=== PATIENT | male | born 1970 | race Caucasian/White ===

== ENCOUNTER 2022-12-12 10:31 | Inpatient (IN) ==
[2022-12-12] MEDS ORDERED: SODIUM CHLORIDE 0.9% 1000ML 1,000 ML IV ONE (11:11)
--- NOTE | 2022-12-12 11:13 | Emergency Department Note ---
Impression & Plan DVT (deep venous thrombosis) [facility] ED Provider Note HPI: The patient is a 52-year-old gentleman with history of clotting disorder, he is currently prescribed Coumadin, presents the emergency department with a chief complaint of increasing pain in his right lower extremity below the knee for the past 7 days. Patient states over the past 2 days he has also had some pain in his lower abdomen. Patient states he has not been taking his warfarin as prescribed over about the past week because he ran out of his prescription. Patient states that he went to an outside hospital last evening in [place], [place], and he had a CT angiography performed of his chest that was negative. He did not have any ultrasound imaging done as they did not have an screen room operator in-house. Patient states he also did not have any imaging of his abdomen done. On arrival here to the ED the patient is moderately hypertensive at 162/100, he is saturating well on room air, he is otherwise in no acute distress on my initial assessment. ROS: - Per HPI Differential Diagnosis: DVT, mesenteric ischemia, small bowel obstruction, diverticulitis flare, acute appendicitis, acute colitis, amongst other potential pathologies. *Outpatient medications and allergy history reviewed. *Pertinent external medical records reviewed. PE: General: Alert HEENT: Normocephalic, trachea midline Eyes: Extraocular eye movement is intact, no scleral erythema Pulmonary: Clear to auscultation bilaterally, no wheezing Cardio: Regular rate and rhythm GI: Abdomen is soft to palpation : No suprapubic tenderness MSK: No evidence of trauma or malformation of the extremities, no edema Skin: No evidence of rash Neuro: Alert, no focal deficits Psychiatric: Cooperative site monitor: (As interpreted by myself): - An order was placed for continuous cardiac monitoring - Patient was noted to be in sinus rhythm with a rate of 75 EKG: (As interpreted by myself): Rate: 66 Rhythm: Normal sinus rhythm Intervals: Within normal limits ST changes: No ST elevation Time: 1049 Interventions provided in ED: -IV heparin drip and bolus Medical Decision Making: Shortly after the patient arrived IV was established and lab work obtained, patient was maintained on monitoring analyst. Given the patient's complaint of right lower extremity pain ultrasound imaging was obtained that does show evidence of acute DVT. Lab work shows no leukocytosis, hemoglobin is normal at 14.3, platelet count is slightly reduced at 119, INR is noted to be subtherapeutic at 1.4, CMP does not show any critical findings. Lactic acid is normal. CT imaging of the abdomen pelvis was obtained that shows evidence of extensive clot burden below the IVC filter including the IVC and iliac veins as well as femoral veins. There is also mention of nonocclusive thrombus of the inferior mesenteric vein. Patient was initiated on heparin bolus and drip, I did discuss the patient's presentation with on-call vascular surgery, Dr. Flannery, who was in agreement that there is no indication for acute surgery at this time for nonocclusive mesenteric vein thrombus, recommends heparinization until the patient's INR is therapeutic. I did discuss this with the patient and his at the bedside, they are in agreement for admission, case was then discussed with the on-call hospitalist, Dr. Emmanuel, who is in agreement for admission. Patient did take his dose of warfarin earlier today, will defer further warfarin dosing to the inpatient team. Patient was placed for admission in stable condition. Consultants: -Vascular surgery, Dr. Flannery -Hospitalist, Dr. Emmanuel Disposition discussion held by myself with: Patient and at bedside Diagnosis: 1. Acute DVT, right lower extremity 2. IVC thrombus 3. Inferior mesenteric vein thrombus 4. Bilateral iliac and femoral vein thrombus 5. History of Antithrombin III deficiency 6. 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 1986 Family history of antithrombin III deficiency History of fracture of tibia Presence of inferior vena cava filter Placed [place] in 2011 Social History Smoking Status: Never smoker Preferred Language: Albanian Feels Safe at Home: Yes Allergies Allergies Allergy/AdvReac Type Severity Reaction Status Date / Time No Known Allergies Allergy Unverified 12/12/22 14:37 Home Meds Home Medications Medication Instructions Recorded Confirmed sildenafil 100 mg tablet 100 mg PO DAILY PRN 1 hour prior 12/12/22 12/12/22 to sexual activity warfarin 2 mg tablet (Jantoven) See Rx Instructions .Route .COMPLEX 12/12/22 12/12/22 warfarin 5 mg tablet (Jantoven) See Rx Instructions .Route .COMPLEX 07/26/23 07/26/23 Results & Data (ED) Vital Signs Vital Signs - 24 hr 12/12/22 10:34 12/12/22 11:59 12/12/22 12:05 Temperature 36.6 C Temperature Source Temporal Artery Scan Pulse Rate 87 65 Pulse Rate [Apical] 67 Respiratory Rate 16 18 Respiratory Effort / Characteristics Non-Labored Respiratory Depth Normal Blood Pressure 162/100 H Blood Pressure [Left Arm] 140/102 H Blood Pressure Mean 120 Blood Pressure Mean [Left Arm] 114 Pulse Oximetry 100 98 Oxygen Delivery Method Room Air Sepsis New/Unexplained Change in Mental Status No Sepsis Action Taken by Nursing No Action Required 12/12/22 12:50 12/12/22 13:24 12/12/22 13:49 Temperature Temperature Source Pulse Rate Pulse Rate [Apical] 64 69 70 Respiratory Rate 18 18 18 Respiratory Effort / Characteristics Non-Labored Respiratory Depth Normal Blood Pressure Blood Pressure [Left Arm] 150/103 H 149/97 H 151/97 H Blood Pressure Mean Blood Pressure Mean [Left Arm] 118 114 115 Pulse Oximetry 98 99 98 Oxygen Delivery Method Room Air Room Air Room Air Sepsis New/Unexplained Change in Mental Status Sepsis Action Taken by Nursing 12/12/22 14:00 12/12/22 14:37 Temperature Temperature Source Pulse Rate Pulse Rate [Apical] 73 71 Respiratory Rate 18 18 Respiratory Effort / Characteristics Non-Labored Respiratory Depth Normal Blood Pressure Blood Pressure [Left Arm] 155/102 H 132/92 Blood Pressure Mean Blood Pressure Mean [Left Arm] 119 105 Pulse Oximetry 96 99 Oxygen Delivery Method Room Air Room Air Sepsis New/Unexplained Change in Mental Status Sepsis Action Taken by Nursing Laboratory Data 12/12/22 10:52 12/12/22 10:52 Lab Results 12/12/22 12/12/22 12/12/22 Range/Units 10:52 10:52 10:52 WBC 9.25 (4.8-10.8) K/ul RBC 4.67 L (4.70-6.10) M/uL Hgb 14.3 (14.0-18.0) g/dl Hct 42.8 (42.0-52.0) % MCV 91.6 (80.0-100.0) fL MCH 30.6 (25.0-34.0) pg MCHC 33.4 (32.0-36.0) g/dL RDW Std Deviation 46.2 (36.4-46.3) fL RDW Coeff of [place] 13.8 (11.5-14.5) % Plt Count 119 L (130-400) K/uL MPV 10.7 (9.4-12.4) fL Immature Gran % (Auto) 0.3 % Neut % (Auto) 76.1 % Lymph % (Auto) 15.1 % [place] % (Auto) 7.8 % Eos % (Auto) 0.5 % Baso % (Auto) 0.2 % Neut # (Auto) 7.03 H (1.40-6.50) K/uL Lymph # (Auto) 1.40 (1.2-3.4) K/uL [place] # (Auto) 0.72 H (0.11-0.59) K/uL Eos # (Auto) 0.05 (0-0.50) K/uL Baso # (Auto) 0.02 (0-0.2) K/uL Immature Gran # (Auto) 0.03 (0.01-0.20) K/uL PT 15.1 H (9.0-12.0) Seconds INR 1.4 H (0.9-1.1) APTT 26.8 (21.0-31.0) Seconds PTT Ratio 1.0 Sodium 140 (136-145) mmol/L Potassium 4.2 (3.5-5.1) mmol/L Chloride 105 (98-107) mmol/L Carbon Dioxide 28 (21-32) mmol/L Anion Gap 7 (3-11) BUN 19 (6-23) mg/dl Creatinine 1.12 (0.6-1.4) mg/dl Est Cr Clr Drug Dosing 81.9 ml/min Est GFR ( Amer) 86.5 ml/min Est GFR (Non-Af Amer) 74.6 ml/min BUN/Creatinine Ratio 17.0 (10-20) Glucose 111 H (70-99(Fasting)) mg/dl Lactate (0.4-2.0) mmol/L Calcium 9.6 (8.6-10.3) mg/dl Total Bilirubin 0.8 (0.2-1.0) mg/dl AST 19 (13-39) U/L ALT 19 (7-52) U/L Alkaline Phosphatase 61 (34-104) U/L Troponin I High Sens 2.6 (0-20) pg/ml Total Protein 7.5 (6.0-8.3) gm/dl Albumin 4.8 (3.4-5.0) gm/dl Globulin 2.7 (2.5-4.0) gm/dl Albumin/Globulin Ratio 1.8 (0.9-2) Lipase 60 (11-82) U/L Urine Color Urine Appearance (Clear) Urine pH (4.5-7.5) Ur Specific [place] (1.000-1.030) Urine Protein (Negative) Urine Glucose (UA) (Negative) Urine Ketones (Negative) Urine Blood (Negative) Urine Nitrite (Negative) Urine Bilirubin (Negative) Urine Urobilinogen (Negative) Ur Leukocyte Esterase (Negative) Urine WBC (Auto) (0-5) /hpf Urine RBC (Auto) (0-4) /hpf U Hyaline Cast (Auto) (0-5) /lpf U Epithel Cells (Auto) (0-5) /lpf Urine Bacteria (Auto) (Negative) SARS-CoV-2, RNA, NAAT (NEGATIVE) 12/12/22 12/12/22 12/12/22 Range/Units 12:43 13:37 13:45 WBC (4.8-10.8) K/ul RBC (4.70-6.10) M/uL Hgb (14.0-18.0) g/dl Hct (42.0-52.0) % MCV (80.0-100.0) fL MCH (25.0-34.0) pg MCHC (32.0-36.0) g/dL RDW Std Deviation (36.4-46.3) fL RDW Coeff of [place] (11.5-14.5) % Plt Count (130-400) K/uL MPV (9.4-12.4) fL Immature Gran % (Auto) % Neut % (Auto) % Lymph % (Auto) % [place] % (Auto) % Eos % (Auto) % Baso % (Auto) % Neut # (Auto) (1.40-6.50) K/uL Lymph # (Auto) (1.2-3.4) K/uL [place] # (Auto) (0.11-0.59) K/uL Eos # (Auto) (0-0.50) K/uL Baso # (Auto) (0-0.2) K/uL Immature Gran # (Auto) (0.01-0.20) K/uL PT (9.0-12.0) Seconds INR (0.9-1.1) APTT (21.0-31.0) Seconds PTT Ratio Sodium (136-145) mmol/L Potassium (3.5-5.1) mmol/L Chloride (98-107) mmol/L Carbon Dioxide (21-32) mmol/L Anion Gap (3-11) BUN (6-23) mg/dl Creatinine (0.6-1.4) mg/dl Est Cr Clr Drug Dosing ml/min Est GFR ( Amer) ml/min Est GFR (Non-Af Amer) ml/min BUN/Creatinine Ratio (10-20) Glucose (70-99(Fasting)) mg/dl Lactate 0.9 (0.4-2.0) mmol/L Calcium (8.6-10.3) mg/dl Total Bilirubin (0.2-1.0) mg/dl AST (13-39) U/L ALT (7-52) U/L Alkaline Phosphatase (34-104) U/L Troponin I High Sens (0-20) pg/ml Total Protein (6.0-8.3) gm/dl Albumin (3.4-5.0) gm/dl Globulin (2.5-4.0) gm/dl Albumin/Globulin Ratio (0.9-2) Lipase (11-82) U/L Urine Color Yellow Urine Appearance Clear (Clear) Urine pH 6.0 (4.5-7.5) Ur Specific [place] 1.041 H (1.000-1.030) Urine Protein Trace H (Negative) Urine Glucose (UA) Negative (Negative) Urine Ketones Trace H (Negative) Urine Blood Negative (Negative) Urine Nitrite Negative (Negative) Urine Bilirubin Negative (Negative) Urine Urobilinogen Negative (Negative) Ur Leukocyte Esterase Negative (Negative) Urine WBC (Auto) 1-5 (0-5) /hpf Urine RBC (Auto) 0-4 (0-4) /hpf U Hyaline Cast (Auto) 5-10 H (0-5) /lpf U Epithel Cells (Auto) 5-10 H (0-5) /lpf Urine Bacteria (Auto) Negative (Negative) SARS-CoV-2, RNA, NAAT NEGATIVE (NEGATIVE) Administered Medications Heparin Sodium/Dextrose (Heparin Sodium/Dextrose) 25,000 units in 500 mls @ 27 mls/hr IV .[id number] [facility]; Protocol Stop: 01/11/23 13:44 Last Admin: 12/12/22 13:40 Dose: 1,350 units/hr, 27 mls/hr Documented By: HEATH Co-signed By: JUWAN Discontinued Medications Heparin Sodium (Porcine) (Heparin Sod (Porcine) 1000 Unit/Ml) 6,000 units IV NOW ONE Stop: 12/12/22 13:42 Last Admin: 12/12/22 13:39 Dose: 5,000 units Documented By: HEATH Co-signed By: JUWAN Heparin Sodium/Dextrose (Heparin Iv Adult Wt-Based Standard With Bolus Protocol) 1 each IV NOW [facility]; Protocol Stop: 12/12/22 13:27 Last Admin: 12/12/22 13:51 Dose: 1 each Documented By: HEATH Sodium Chloride (Nss 1000ml) 1,000 mls @ 999 mls/hr IV .[id number] ONE Stop: 12/12/22 12:11 Last Infusion: 12/12/22 12:28 Dose: 0 mls/hr Documented By: Admin: 12/12/22 11:29 Dose: 999 mls/hr Documented By: HEATH Ioversol (Optiray 320 100ml) 94 ml IV ONCE ONE Stop: 12/12/22 12:33 Last Admin: 12/12/22 12:33 Dose: 94 ml Documented By: TRACY Imaging Data Radiologist's Impression: Abdomen/Pelvis CT 12/12/22 11:[address] WITH IV CONTRAST CT DOSE: 1326.08 mGy.cm HISTORY: Lower abd pain TECHNIQUE: Multiaxial CT images of the abdomen and pelvis were performed following the use of intravenous contrast. A dose lowering technique was utilized adhering to the principles of ALARA. COMPARISON STUDY: None. FINDINGS: Small patchy densities within the bilateral lower lobes favor scarring or atelectasis. No pneumoperitoneum. No pneumatosis. No acute fractures identified. Tiny fat-containing inguinal hernia. Multiple superficial varicosities seen within the lower anterior abdominal wall. No hepatic or splenic masses. The pancreas, adrenal glands, and kidneys are unremarkable. No hydronephrosis. The main portal vein is patent. Small amount nonocclusive thrombus suggested at the portosplenic confluence which extends into the majority of the inferior mesenteric vein. An IVC filter is noted. There is thrombus within the IVC filter and extending distally into the IVC. This likely accounts for the mild fat stranding surrounding the IVC. There is also extensive thrombus involving the majority of the iliac and femoral veins. Hyperdensity within the gallbladder lumen suggestive of vicarious excretion of contrast. There is also contrast within the bladder. This is likely due to a prior CT examination. Moderate bladder wall thickening with adjacent fat stranding. There is also mild fat stranding surrounding the mildly enlarged prostate gland as well as the seminal vesicles. This could be due to the abnormal venous drainage within the pelvis from the extensive venous thrombus or a cystitis/prostatitis. Hypoplastic left external iliac vein suggesting chronic thrombus. No bowel wall thickening or obstruction. Colonic diverticulosis. No evidence for acute diverticulitis. Normal appendix. IMPRESSION: 1. Thrombus identified within the patient's IVC filter. There is also extensive thrombus within the IVC distal to the IVC filter and within the majority of the iliac and femoral veins. The thrombus is age indeterminate but favors an acute on chronic process. There are definite areas of chronic thrombus given the extensive superficial varicosities within the lower abdominal wall and diminutive left external iliac vein. 2. Age-indeterminate thrombus within the inferior mesenteric vein as well as nonocclusive thrombus at the portosplenic confluence. 3. Moderate bladder wall thickening with adjacent fat stranding. There is also mild fat stranding surrounding the mildly enlarged prostate gland as well as the seminal vesicles. This could be due to the abnormal venous drainage within the pelvis from the extensive venous thrombus or a cystitis/prostatitis. 4. No bowel wall thickening or obstruction. ACT 112: Negative or not required by law. Electronically signed by: Blake Nettles M.D. 12/12/2022 12:54 PM Venous Doppler Study 12/12/22 11:11 US venous doppler LE RT HISTORY: 52 years-old Male pain, eval for dvt acute pain and swelling of the right lower extremity COMPARISON: 03/04/2008 TECHNIQUE: Multiple real-time sonographic images of the right lower extremity deep venous structures were obtained assessing grayscale appearance, color and spectral flow. FINDINGS: 2 cm segment of occlusive thrombus is noted within a branch of the mid superficial femoral vein. Additional occlusive thrombus is noted within the popliteal, posterior tibial and peroneal veins. IMPRESSION: Likely acute deep venous thrombosis. ACT 112: Negative or not required by law. The above report was generated using voice recognition software. It may contain grammatical, syntax or spelling errors. Electronically signed by: David Morales M.D. 12/12/2022 12:06 PM Discharge Plan Visit Data Chief Complaint: Abdominal Pain Stated Complaint: ABDOMINAL PAIN, RT [facility] ED Provider: Ford Martinez Discharge Problem: DVT (deep venous thrombosis) Forms Stand Alone Forms: [facility] Prescriptions Prescriptions: No Action sildenafil 100 mg tablet 100 mg PO DAILY PRN (Reason: 1 hour prior to sexual activity) warfarin [Jantoven] 2 mg Tablet See Rx Instructions .ROUTE .COMPLEX Rx Instructions: Take 2mg with 5mg tablet to equal 7mg by mouth once daily warfarin [Jantoven] 5 mg tablet See Rx Instructions .ROUTE .COMPLEX Rx Instructions: Take 5mg with 2mg tablet to equal 7mg by mouth once daily Referrals Referrals: Sidney Sheth [Primary Care Provider] -
[2022-12-12 11:17] LABS: Basophils # (auto) 0.02 K/uL (0-0.2); Basophils % (auto) 0.2 %; Eosinophils # (auto) 0.05 K/uL (0-0.50); Eosinophils % (auto) 0.5 %; Hematocrit (blood only) 42.8 % (42.0-52.0); Hemoglobin 14.3 g/dl (14.0-18.0); Immature Granulocytes # (auto) 0.03 K/uL (0.01-0.20); Immature Granulocytes % (auto) 0.3 %; Lymphocytes % (auto) 15.1 %; Mean Corpuscular Hemoglobin 30.6 pg (25.0-34.0); Mean Corpuscular Hgb Conc 33.4 g/dL (32.0-36.0); Mean Corpuscular Volume 91.6 fL (80.0-100.0); Mean Platelet Volume 10.7 fL (9.4-12.4); Monocytes # (auto) 0.72 K/uL (0.11-0.59); Monocytes % (auto) 7.8 %; Neutrophils # (auto) 7.03 K/uL (1.40-6.50); Neutrophils % (auto) 76.1 %; Platelet Count 119 K/uL (130-400); RDW Coefficient of Variation 13.8 % (11.5-14.5); RDW Standard Deviation 46.2 fL (36.4-46.3); Red Blood Count 4.67 M/uL (4.70-6.10); White Blood Count 9.25 K/ul (4.8-10.8)
--- NOTE | 2022-12-12 11:23 | Electrocardiogram Report ---
Test Reason : Blood Pressure : / mmHG Vent. Rate : 066 BPM Atrial Rate : 066 BPM P-R Int : 178 ms QRS Dur : 108 ms QT Int : 404 ms P-R-T Axes : 018 -15 011 degrees QTc Int : 423 ms Normal sinus rhythm Normal ECG No previous ECGs available Confirmed by Gary Garcia ([id number]) on 12/12/2022 11:23:05 AM Referred By: Confirmed By:Gary Garcia
[2022-12-12 11:26] LABS: Albumin Globulin Ratio 1.8 (0.9-2); Albumin Level 4.8 gm/dl (3.4-5.0); Bilirubin,Total 0.8 mg/dl (0.2-1.0); Calcium 9.6 mg/dl (8.6-10.3); Creatinine Clr Calc Pharmacy 81.9 ml/min; Est GFR (African American) 86.5 ml/min; Est GFR (Non-African American) 74.6 ml/min; Globulin 2.7 gm/dl (2.5-4.0); Potassium 4.2 mmol/L (3.5-5.1); Total Protein 7.5 gm/dl (6.0-8.3)
[2022-12-12 11:36] LABS: INR 1.4 (0.9-1.1); Partial Thromboplastin Time 26.8 Seconds (21.0-31.0); Prothrombin Time 15.1 Seconds (9.0-12.0)
--- NOTE | 2022-12-12 12:07 | Ultrasound Report ---
US venous doppler LE RT HISTORY: 52 years-old Male pain, eval for dvt acute pain and swelling of the right lower extremity COMPARISON: 03/04/2008 TECHNIQUE: Multiple real-time sonographic images of the right lower extremity deep venous structures were obtained assessing grayscale appearance, color and spectral flow. FINDINGS: 2 cm segment of occlusive thrombus is noted within a branch of the mid superficial femoral vein. Hiram tional occlusive thrombus is noted within the popliteal, posterior tibial and peroneal veins. IMPRESSION: Likely acute deep venous thrombosis. ACT 112: Negative or not required by law. The above report was generated using voice recognition software. It may contain grammatical, syntax o r spelling errors. Electronically signed by: David Morales M.D. 12/12/2022 12:06 PM
[2022-12-12] MEDS ORDERED: OPTIRAY 320 100ml IV ONE (12:32)
--- NOTE | 2022-12-12 12:55 | CT Scan Report ---
ABDOMEN AND PELVIS CT WITH IV CONTRAST CT DOSE: 1326.08 mGy.cm HISTORY: Lower abd pain TECHNIQUE: Multiaxial CT images of the abdomen and pelvis were performed following the use of intrave nous contrast. A dose lowering technique was utilized adhering to the principles of ALARA. COMPARISON STUDY: None. FINDINGS: Small patchy densities within the bilateral lower lobes favor scarring or atelectasis. No p neumoperitoneum. No pneumatosis. No acute fractures identified. Tiny fat-containing inguinal hernia. Multiple superficial varicosities seen within the lower anterior abdominal wall. No hepatic or spleni c masses. The pancreas, adrenal glands, and kidneys are unremarkable. No hydronephrosis. The main por [place] vein is patent. Small amount nonocclusive thrombus suggested at the portosplenic confluence which extends into the majority of the inferior mesenteric vein. An IVC filter is noted. There is thrombus within the IVC filter and extending distally into the IVC. This likely accounts for the mild fat str anding surrounding the IVC. There is also extensive thrombus involving the majority of the iliac and femoral veins. Hyperdensity within the gallbladder lumen suggestive of vicarious excretion of contras t. There is also contrast within the bladder. This is likely due to a prior CT examination. Moderate bladder wall thickening with adjacent fat stranding. There is also mild fat stranding surrounding the mildly enlarged prostate gland as well as the seminal vesicles. This could be due to the abnormal ve nous drainage within the pelvis from the extensive venous thrombus or a cystitis/prostatitis. Hypopla stic left external iliac vein suggesting chronic thrombus. No bowel wall thickening or obstruction. C olonic diverticulosis. No evidence for acute diverticulitis. Normal appendix. IMPRESSION: 1. Thrombus identified within the patient's IVC filter. There is also extensive thrombus within the I VC distal to the IVC filter and within the majority of the iliac and femoral veins. The thrombus is a ge indeterminate but favors an acute on chronic process. There are definite areas of chronic thrombus given the extensive superficial varicosities within the lower abdominal wall and diminutive left ext ernal iliac vein. 2. Age-indeterminate thrombus within the inferior mesenteric vein as well as nonocclusive thrombus at the portosplenic confluence. 3. Moderate bladder wall thickening with adjacent fat stranding. There is also mild fat stranding radha rounding the mildly enlarged prostate gland as well as the seminal vesicles. This could be due to the abnormal venous drainage within the pelvis from the extensive venous thrombus or a cystitis/prostati tis. 4. No bowel wall thickening or obstruction. ACT 112: Negative or not required by law. Electronically signed by: Blake Nettles M.D. 12/12/2022 12:54 PM
[2022-12-12 13:17] LABS: Appearance Urine Clear (Clear); Bacteria Urine Automated Negative (Negative); Bilirubin Urine Negative (Negative); Blood Urine Negative (Negative); Color Urine Yellow; Glucose Urine UA Negative (Negative); Ketones Urine Trace (Negative); Leukocyte Esterase Urine Negative (Negative); Nitrite Urine Negative (Negative); Protein Urine Trace (Negative); RBC Urine Automated 0-4 /hpf (0-4); Specific Gravity Urine 1.041 (1.000-1.030); Urobilinogen Urine Negative (Negative)
[2022-12-12] MEDS ORDERED: Heparin IV Adult Wt-Based Standard WITH Bolus Protocol IV STA (13:26)
[2022-12-12] MEDS: HEPARIN SODIUM/DEXTROSE 25,000 UNITS/500 ML BAG IV SCH (13:40)
[2022-12-12 13:41] LABS: Troponin I High Sensitivity 2.6 pg/ml (0-20)
[2022-12-12] MEDS ORDERED: HEPARIN SOD (PORCINE) 1000 UNIT/ML IV ONE ×2 (13:41)
--- NOTE | 2022-12-12 14:32 | History & Physical Report ---
Date of Service December 12, 2022 Assessment & Plan (1) Deep vein thrombosis: Plan: Admission due to worsening symptoms with IVC and inferior mesenteric vein thrombus while on warfarin (although subtherapeutic) and IV heparin recommended by vascular surgery IV heparin standard bolus and drip until INR therapeutic Already took warfarin 8mg PO today, will give additional 8mg. 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 He is on lifelong warfarin but reports running out when he went on a business trip and could not getting filled early on Saturday. He usually takes warfarin 7mg PO daily which keeps his INR 2-3. He still hasn't been able to get it filled and has been taking his mother's warfarin dose at 8mg PO daily. since last Saturday including this morning as his right leg has been more painful and he suspected he had a DVT. Yesterday he started having lower abdominal pains, tingling in his fingers and diaphoresis. He went to [place] [facility] and they obtained a CT for pulmonary embolism which was reportedly negative (he has an IVC filter in place) but no abdominal imaging was done per patient recollection and he was sent home with a possible diagnosis of a muscle strain. The pain is worse on any movement and progressively got worse to today therefore decided to come to this ER. In the ER CT A/P showed acute on chronic thrombus of IVC filter and within the majority of the femoral, iliac veins and inferior mesenteric. He does not report any worsening pain after eating. Allergies Allergy/AdvReac Type Severity Reaction Status Date / Time No Known Allergies Allergy Unverified 12/12/22 14:37 Home Medications Medication Instructions Recorded Confirmed Type sildenafil 100 mg tablet 100 mg PO DAILY PRN 1 hour prior 12/12/22 12/12/22 History to sexual activity warfarin 2 mg tablet (Devantetoven) See Rx Instructions .Route .COMPLEX 12/12/22 12/12/22 History warfarin 5 mg tablet (Jantoven) See Rx Instructions .Route .COMPLEX 12/12/22 12/12/22 History Past Med/Surg History Medical History (Updated 12/12/22 @ 15:27 by Bahman Emmanuel MD) Antithrombin 3 deficiency Deep vein thrombosis Initially diagnosed 1986 Family history of antithrombin III deficiency History of fracture of tibia Presence of inferior vena cava filter Placed [place] in 2011 Social History Smoking Status: Never smoker Hx Alcohol Use: Yes Hx Substance Use: No Preferred Language: Hebrew Communication Ability: Effective Info Analyst Required: No Beliefs That Will Affect Care: None Current Living Situation: Spouse and Family Feels Safe at Home: Yes Safety Concerns: Feels Safe At This Time Assistive Devices: Glasses Review of Systems Review of Systems: All systems reviewed & are unremarkable except as noted in HPI & below Physical Exam Constitutional: WD/WN, vitals as above Eyes: + anicteric sclerae; normal pupil size ENMT: external ear and nose normal, oropharynx normal Respiratory: normal respiratory effort, lungs clear to auscultation Cardiovascular: Rate/Rhythm: regular rate and regular rhythm Heart Sounds: no murmur Extremities: normal capillary refill, + calf tenderness (right) and + pedal edema (1+ b/l equal pitting) Gastrointestinal (Abdomen): Inspection/Auscultation: abdomen normal to inspection; abdomen not distended Percussion/Palpation: + abdomen tender (suprapubic) and abdomen soft; no guarding and abdomen not rigid Musculoskeletal: no cyanosis or clubbing, extremities motor strength 5/5 Skin: no rashes, warm and dry Neurologic: moves all extremities and awake; not confused Psychiatric: A+Ox3, euthymic affect Results & Data Results & Data Vital Signs (Past 12 Hours) Vital Signs Temp Pulse Pulse Resp BP BP Pulse Ox 12/12/22 14:00 73 18 155/102 H 96 12/12/22 13:49 70 18 151/97 H 98 12/12/22 13:24 69 18 149/97 H 99 12/12/22 12:50 64 18 150/103 H 98 12/12/22 12:05 65 12/12/22 11:59 67 18 140/102 H 98 12/12/22 10:34 36.6 C 87 16 162/100 H 100 O2 Del Method 12/12/22 14:00 Room Air 12/12/22 13:49 Room Air 12/12/22 13:24 Room Air 12/12/22 12:50 Room Air 12/12/22 12:05 12/12/22 11:59 Room Air 12/12/22 10:34 Laboratory Results Abnormal lab results 12/12/22 12/12/22 12/12/22 Range/Units 10:52 10:52 10:52 RBC 4.67 L (4.70-6.10) M/uL Plt Count 119 L (130-400) K/uL Neut # (Auto) 7.03 H (1.40-6.50) K/uL [place] # (Auto) 0.72 H (0.11-0.59) K/uL PT 15.1 H (9.0-12.0) Seconds INR 1.4 H (0.9-1.1) Glucose 111 H (70-99(Fasting)) mg/dl Ur Specific [place] (1.000-1.030) Urine Protein (Negative) Urine Ketones (Negative) U Hyaline Cast (Auto) (0-5) /lpf U Epithel Cells (Auto) (0-5) /lpf 12/12/22 Range/Units 12:43 RBC (4.70-6.10) M/uL Plt Count (130-400) K/uL Neut # (Auto) (1.40-6.50) K/uL [place] # (Auto) (0.11-0.59) K/uL PT (9.0-12.0) Seconds INR (0.9-1.1) Glucose (70-99(Fasting)) mg/dl Ur Specific [place] 1.041 H (1.000-1.030) Urine Protein Trace H (Negative) Urine Ketones Trace H (Negative) U Hyaline Cast (Auto) 5-10 H (0-5) /lpf U Epithel Cells (Auto) 5-10 H (0-5) /lpf Diagnostic Findings ABDOMEN AND PELVIS CT WITH IV CONTRAST CT DOSE: 1326.08 mGy.cm HISTORY: Lower abd pain TECHNIQUE: Multiaxial CT images of the abdomen and pelvis were performed following the use of intravenous contrast. A dose lowering technique was utilized adhering to the principles of ALARA. COMPARISON STUDY: None. FINDINGS: Small patchy densities within the bilateral lower lobes favor scarring or atelectasis. No pneumoperitoneum. No pneumatosis. No acute fractures identified. Tiny fat-containing inguinal hernia. Multiple superficial varicosities seen within the lower anterior abdominal wall. No hepatic or splenic masses. The pancreas, adrenal glands, and kidneys are unremarkable. No hydronephrosis. The main portal vein is patent. Small amount nonocclusive thrombus suggested at the portosplenic confluence which extends into the majority of the inferior mesenteric vein. An IVC filter is noted. There is thrombus within the IVC filter and extending distally into the IVC. This likely accounts for the mild fat stranding surrounding the IVC. There is also extensive thrombus involving the majority of the iliac and femoral veins. Hyperdensity within the gallbladder lumen suggestive of vicarious excretion of contrast. There is also contrast within the bladder. This is likely due to a prior CT examination. Moderate bladder wall thickening with adjacent fat stranding. There is also mild fat stranding surrounding the mildly enlarged prostate gland as well as the seminal vesicles. This could be due to the abnormal venous drainage within the pelvis from the extensive venous thrombus or a cystitis/prostatitis. Hypoplastic left external iliac vein suggesting chronic thrombus. No bowel wall thickening or obstruction. Colonic diverticulosis. No evidence for acute diverticulitis. Normal appendix. IMPRESSION: 1. Thrombus identified within the patient's IVC filter. There is also extensive thrombus within the IVC distal to the IVC filter and within the majority of the iliac and femoral veins. The thrombus is age indeterminate but favors an acute on chronic process. There are definite areas of chronic thrombus given the extensive superficial varicosities within the lower abdominal wall and diminutive left external iliac vein. 2. Age-indeterminate thrombus within the inferior mesenteric vein as well as nonocclusive thrombus at the portosplenic confluence. 3. Moderate bladder wall thickening with adjacent fat stranding. There is also mild fat stranding surrounding the mildly enlarged prostate gland as well as the seminal vesicles. This could be due to the abnormal venous drainage within the pelvis from the extensive venous thrombus or a cystitis/prostatitis. 4. No bowel wall thickening or obstruction. US venous doppler LE RT HISTORY: 52 years-old Male pain, eval for dvt acute pain and swelling of the right lower extremity COMPARISON: 03/04/2008 TECHNIQUE: Multiple real-time sonographic images of the right lower extremity deep venous structures were obtained assessing grayscale appearance, color and spectral flow. FINDINGS: 2 cm segment of occlusive thrombus is noted within a branch of the mid superficial femoral vein. Additional occlusive thrombus is noted within the popliteal, posterior tibial and peroneal veins. IMPRESSION: Likely acute deep venous thrombosis. Medications Administered ER Medications Given: NSS 1L bolus Heparin IV standard bolus and drip ECG Rate (beats per minute): 66 Rhythm: normal sinus Findings: no acute ischemic change Comparison ECG Date: no prior available Code Status & VTE Plan Code Status Full VTE Prophylaxis Plan VTE Prophylaxis will be ordered: Yes PG Care Time/CCT Total # of Minutes Spent Total Time Spent with Patient: Total time spent is greater than 50% in coordination of care (as documented) at patient's floor/unit and/or counseling patient: Coding Level of Care Code 05827 INT INP/OBS CARE 2/55MIN Diagnoses Deep vein thrombosis I82.409 Presence of inferior vena cava filter Z95.828 Antithrombin 3 deficiency D68.59
[2022-12-12] MEDS ORDERED: WARFARIN SOD 4 MG TAB PO STA (15:31)
[2022-12-12] MEDS ORDERED: ACETAMINOPHEN 325 MG TAB PO PRN (17:18)
[2022-12-12 20:42] LABS: Partial Thromboplastin Ratio 1.8
[2022-12-12 20:46] LABS: Partial Thromboplastin Time 51.7 Seconds (21.0-31.0)
--- NOTE | 2022-12-13 07:26 | Hospitalist Progress Note ---
Date of Service December 13, 2022 Assessment & Plan (1) Deep vein thrombosis: (2) Presence of inferior vena cava filter: (3) Antithrombin 3 deficiency: Plan Yan is a 52 year old male with history of antithrombin 3 deficiency and an IVC filter who presented for increasing pain in his RLE over the course of 7 days. Patient had not been taking his Warfarin as Rx over the last week d/t running out of his prescription, followed by driving to [place] for a work trip. CT chest was found to be unremarkable upon presentation to [facility], no abdominal imaging or RLE ultrasonography performed prior to presentation at [facility]. Imaging (CT A/P and doppler) performed here showed significant thrombus in the IVC, on the IVC filter, in the iliac and femoral veins, and in the inferior mesenteric vein. RLE DVT (Iliac/Femoral/Inferior Mesenteric) Thrombus in IVC filter - complication of IVC - Last hospitalization for DVT noted to be at age 16 when he was diagnosed with Antithrombin 3 defieicney * Patient has been managed on Warfarin since dx * IVC filter placed in 2011 in setting of knee injury/surgery * Hx of frequent superficial blood clots - Likely provoked by recent inability to fill Warfarin Rx as well as subsequent work trip to [place] (long car ride) * Patient does not experience frequent medication insecurity, was unaware that Rx needed updated and was unable to do so prior to work trip - CTAP w/ evidence of thrombus in IVC filter, extensive thrombus of IVC and majority of iliac and femoral veins (indeterminate age) * CT also indicating bladder wall thickening and enlarged prosatate gland/seminal vesicles, possibly a/w abnormal venous drainage in pelvis a/w extensive thrombus - Venous Doppler w/ evidence of occlusive thrombus in mid superficial femoral vein and additional occlusion of popliteal, posterior tibial, and peroneal veins - Chest CTA w/o evidence of pulmonary embolism - Medical Management: * Warfarin 8 mg PO daily * Heparin 1350 units/hr (pending therapeutic INR) -INR this morning 1.6 -PT 17, PTT 51.7 -Repeat in AM -Vascular consult pending - appreciate recommendations Antithrombin 3 Deficiency - Underlying contributor to above RLE DVT - Anticoagulation as above Constipation vs immotility: Patient reports no bowel movements last 34-48 hours despite typically having 1 bm daily - CTAP w/o evidence of bowel obstruction, but notable vascular congestion in setting of extensive thrombus * Bowel sounds present. Still passing gas, which is reassuring * Trial miralax and continue to monitor closely VTE Prophylaxis - IV heparin as above Diet - regular Disposition - admit to med/tele Admission and Anticipated Discharge Date Admission Date: December 12, 2022 Supervising Physician Co-Signing Physician Notes I supervised the medical student, Robson Varma, in the history and physical examination of this patient and agree with the documentation as provided above. Any additional recommendations/comments will be outlined here: Patient presenting for extensive DVT in the setting of Antithrombin 3 deficiency w/ subtherapeutic anticoagulation. Physical examination with appreciable TTP of right calf as well as mild suprapubic TTP. Patient's lungs were CTAB and heart was RRR w/o MRG. Plan to support therapeutic INR with Heparin IV and PO Warfarin, will continue to follow PT/INR, currently still subtherapeutic. Will want to ensure that patient has appropriate access to medications and follow up with PCP prior to discharge. ~ Rosas Velasquez DO Attending Physicain Medical Student Supervision Note: I independently interviewed and examined the patient and verified the dean history and physical, reviewed labs and image studies, discussed the case with the medical student Tarah Varma and the Resident physician Rosas Velasquez and agree with the findings and care plan. Subjective 12/13: This morning Yan is feeling well, resting comfortably in bed. He reports mild abdominal discomfort at rest, worse with movement. He has not had a bowel movement in 1-2 days. He has no shortness of breath and no chest pain. Physical Exam Physical Exam: Constitutional: WD/WN, vitals as above HEENT: + anicteric sclerae; normal pupil size, NCAT Respiratory: normal respiratory effort, lungs clear to auscultation bilaterally, no wheezing/rhonchi/rales Cardiovascular: regular rate and regular rhythm, no rubs murmurs or gallops. Normal capillary refill. - Right calf tenderness w/ 1+ non-pitting pedal edema. Pooling of blood and discoloration on left LL (patient baseline) Gastrointestinal: Abdomen soft, non-distended, normoactive bowel sounds.. Mild suprapubic TTP, no rebound or guarding. Skin: no rashes, warm and dry. [facility] Neurologic: AO x 3, no focal neurologic defects, sensation intact bilaterally Results & Data Results & Data Vital Signs (Past 12 Hours) Vital Signs Temp Pulse Pulse Resp BP Pulse Ox O2 Del Method 12/13/22 04:00 36.7 C 60 18 126/81 97 Room Air 12/12/22 22:01 58 L 12/12/22 20:52 65 12/12/22 23:45 36.4 C L 61 18 108/68 99 Room Air 12/12/22 20:56 36.8 C 67 18 136/80 97 Room Air Diagnostic Findings CTAP: 1. Thrombus identified within the patient's IVC filter. There is also extensive thrombus within the IVC distal to the IVC filter and within the majority of the iliac and femoral veins. The thrombus is age indeterminate but favors an acute on chronic process. There are definite areas of chronic thrombus given the extensive superficial varicosities within the lower abdominal wall and diminutive left external iliac vein. 2. Age-indeterminate thrombus within the inferior mesenteric vein as well as nonocclusive thrombus at the portosplenic confluence. 3. Moderate bladder wall thickening with adjacent fat stranding. There is also mild fat stranding surrounding the mildly enlarged prostate gland as well as the seminal vesicles. This could be due to the abnormal venous drainage within the pelvis from the extensive venous thrombus or a cystitis/prostatitis. 4. No bowel wall thickening or obstruction. Venous Doppler - 2 cm segment of occlusive thrombus is noted within a branch of the mid superficial femoral vein. Additional occlusive thrombus is noted within the popliteal, posterior tibial and peroneal veins. Resident Activity Tracking Resident Involvement: Resident Care Provided Care Provided: [facility]
[2022-12-13 07:50] LABS: Basophils # (auto) 0.02 K/uL (0-0.2); Basophils % (auto) 0.4 %; Eosinophils # (auto) 0.13 K/uL (0-0.50); Eosinophils % (auto) 2.4 %; Hematocrit (blood only) 37.7 % (42.0-52.0); Hemoglobin 12.6 g/dl (14.0-18.0); Immature Granulocytes # (auto) 0.02 K/uL (0.01-0.20); Immature Granulocytes % (auto) 0.4 %; Lymphocytes # (auto) 1.33 K/uL (1.2-3.4); Lymphocytes % (auto) 24.9 %; Mean Corpuscular Hemoglobin 30.8 pg (25.0-34.0); Mean Corpuscular Hgb Conc 33.4 g/dL (32.0-36.0); Mean Corpuscular Volume 92.2 fL (80.0-100.0); Mean Platelet Volume 10.5 fL (9.4-12.4); Monocytes # (auto) 0.52 K/uL (0.11-0.59); Monocytes % (auto) 9.7 %; Neutrophils # (auto) 3.33 K/uL (1.40-6.50); Neutrophils % (auto) 62.2 %; Platelet Count 107 K/uL (130-400); RDW Coefficient of Variation 13.7 % (11.5-14.5); Red Blood Count 4.09 M/uL (4.70-6.10); White Blood Count 5.35 K/ul (4.8-10.8)
[2022-12-13 08:09] LABS: BUN Creatinine Ratio 14.3 (10-20); Calcium 8.8 mg/dl (8.6-10.3); Creatinine Clr Calc Pharmacy 100.9 ml/min; Est GFR (African American) 111.1 ml/min; Est GFR (Non-African American) 95.9 ml/min
[2022-12-13 08:15] LABS: INR 1.6 (0.9-1.1)
[2022-12-13] MEDS: HEPARIN SODIUM/DEXTROSE 25,000 UNITS/500 ML BAG IV SCH (09:28)
[2022-12-13 10:30] LABS: Partial Thromboplastin Ratio 2.3
[2022-12-13 10:35] LABS: Partial Thromboplastin Time 64.9 Seconds (21.0-31.0)
--- NOTE | 2022-12-13 14:50 | Consultation ---
Date of Consultation December 13, 2022 Assessment & Plan (1) Deep vein thrombosis: Pt with extensive DVT, acute on chronic. Thrombus noted in IVC filter, as well as IMV, which appears chronic and nonocclusive. No acute sx of mesenteric ischemia. Pt currently on heparin drip. Pt discussed with Dr Flannery. No ind ications for vascular surgical intervention at this time. Recommend anticoagulation. Pt states his PCP was considering changing him to eliquis or xarelto. Would recommend pt be eval by AC clinic or carton inspector before considering changing to eliquis, due to his Antithrombin III deficiency. Warfarin has been effective treatment thus far, although did discuss with pt the necessity of regular INR to eval therapeutic levels. Pt expresses understanding. Please call if needed. History of Present Illness Reason for Consultation: DVT Attending Physician: Li Bruce MD History of Present Illness 52 yo m with hx of DVT and Antithrombin III deficiency, admitted with acute RLE DVT, seen in consultation today. Pt states he had extensive DVT in LLE at age of 16 and has been on AC with coumadin since that time. Also had an IVC filter placed. States he has not had a new DVT since then. States he ran out of his coumadin 3 days before a business trip to [place] and called pharmacy for refill, but they had to contact his prescriber and never got back to him. He called jsut before leaving, but they did not have his new rx. A few days later, he noted increasing pain and swelling of RLE and came to [facility]. States he is admittedly noncompliant with his INR, rarely has it checked, just stays on the same dose of coumadin. Does not know if he is typically therapeutic or not. Does wear 30-40mmHg compression stockings faithfully since age of 16. Pt admits some discomfort in groin/pelvis. Denies JEAN-BAPTISTE, fever, chest pain, SOB, abd pain, N/V, rest pain, claudication, ulcerations, other complaints. Venous US demonstrates extensive DVT RLE. CT abd/pelvis demonstrates thrombus in IVC filter, IMV. Allergies Allergy/AdvReac Type Severity Reaction Status Date / Time No Known Allergies Allergy Unverified 12/12/22 14:37 Home Medications Medication Instructions Recorded Confirmed Type sildenafil 100 mg tablet 100 mg PO DAILY PRN 1 hour prior 12/12/22 12/12/22 History to sexual activity warfarin 2 mg tablet (Jantoven) See Rx Instructions .Route .COMPLEX 12/12/22 0 12/12/22 History warfarin 5 mg tablet (Jantoven) See Rx Instructions .Route .COMPLEX 12/12/22 12/12/22 History Patient History Medical History Antithrombin 3 deficiency Deep vein thrombosis Initially diagnosed 1986 Family history of antithrombin III deficiency History of fracture of tibia Presence of inferior vena cava filter Placed [place] in 2011 Social History Smoking Status: Never smoker Hx Alcohol Use: Yes Hx Substance Use: No Preferred Language: Gambian Communication Ability: Effective Recooperer Required: No Beliefs That Will Affect Care: None Current Living Situation: Spouse and Family Feels Safe at Home: Yes Safety Concerns: Feels Safe At This Time Assistive Devices: Glasses Review of Systems Review of Systems: All systems reviewed & are unremarkable except as noted in HPI & below Physical Exam Constitutional: WD/WN, vitals as above cooperative and comfortable; not in distress Neck: trachea midline Respiratory: normal respiratory effort, lungs clear to auscultation Auscultation: + diminished lung sounds Cardiovascular: Rate/Rhythm: regular rate and regular rhythm Vessels: normal peripheral pulses, femoral pulses present, posterior tibial pulses present, dorsalis pedis pulses present and radial pulses present Extremities: normal capillary refill and + edema Gastrointestinal (Abdomen): Inspection/Auscultation: abdomen normal to inspection and normal bowel sounds Percussion/Palpation: abdomen soft; abdomen nontender Musculoskeletal: no cyanosis or clubbing, extremities motor strength 5/5 Skin: no rashes, warm and dry Neurologic: moves all extremities and awake; no focal motor deficits and not confused Psychiatric: A+Ox3, euthymic affect Results & Data Vital Signs (Past 12 Hours) Vital Signs Temp Pulse Pulse Resp BP Pulse Ox O2 Del Method 12/13/22 11:03 36.5 C 65 17 133/86 98 Room Air 12/13/22 08:13 36.5 C 54 L 18 130/83 93 Room Air 12/13/22 07:46 58 L 12/13/22 04:00 36.7 C 60 18 126/81 97 Room Air
[2022-12-13] MEDS ORDERED: POLYETHYLENE (MIRALAX) 17 GM PACK PO PRN (15:07)
[2022-12-13] MEDS ORDERED: WARFARIN SOD 4 MG TAB PO SCH (16:00)
[2022-12-14] MEDS: HEPARIN SODIUM/DEXTROSE 25,000 UNITS/500 ML BAG IV SCH ×2 (04:31→23:04)
[2022-12-14 08:06] LABS: INR 1.7 (0.9-1.1); Partial Thromboplastin Ratio 2.2; Prothrombin Time 18.1 Seconds (9.0-12.0)
[2022-12-14 08:27] LABS: Partial Thromboplastin Time 62.9 Seconds (21.0-31.0)
[2022-12-14 09:25] LABS: Hematocrit (blood only) 39.2 % (42.0-52.0)
--- NOTE | 2022-12-14 10:19 | Hospitalist Progress Note ---
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 Patient had not been taking his Warfarin as Rx over the last week d/t running out of his prescription, followed by driving to [place] for a work trip. CT chest was found to be unremarkable upon presentation to [facility], no abdominal imaging or RLE ultrasonography performed prior to presentation at [facility]. Imaging (CT A/P and doppler) performed here showed significant thrombus in the IVC, on the IVC filter, in the iliac and femoral veins, and in the inferior mesenteric vein. RLE DVT (Iliac/Femoral/Inferior Mesenteric) Thrombus in IVC filter - complication of IVC - Last hospitalization for DVT noted to be at age 16 when he was diagnosed with Antithrombin 3 defieicney * Patient has been managed on Warfarin since dx * IVC filter placed in 2011 in setting of knee injury/surgery * Hx of frequent superficial blood clots- Likely provoked by recent inability to fill Warfarin Rx as well as subsequent work trip to [place] (long car ride) * Patient does not experience frequent medication insecurity, was unaware that Rx needed updated and was unable to do so prior to work trip - CTAP w/ evidence of thrombus in IVC filter, extensive thrombus of IVC and majority of iliac and femoral veins (indeterminate age) * CT also indicating bladder wall thickening and enlarged prostate gland/seminal vesicles, possibly a/w abnormal venous drainage in pelvis a/w extensive thrombus- Venous Doppler w/ evidence of occlusive thrombus in mid superficial femoral vein and additional occlusion of popliteal, posterior tibial, and peroneal veins - Chest CTA w/o evidence of pulmonary embolism - Medical Management: * Increase Warfarin from 8 mg PO daily to 10mg starting 12/14 * Heparin 1350 units/hr (pending therapeutic INR) -INR this morning 1.7 (from 1.6 12/13) -PT 18.1, PTT 62.9 -Repeat in AM -Per patient, does not regularly check his INR * Patient counseled on importance of maintaining INR at therapeutic levels as outpatient -Vascular consulted: No planned surgical intervention, continue medical mgmt - Transition to Eliquis from Warfarin not recommended d/t lack of supporting data in Antithrombin III deficiency Antithrombin 3 Deficiency - Underlying contributor to above RLE DVT - Anticoagulation as above Constipation vs immotility - Patient moved bowels independently last evening w/o support of PRN laxative - CTAP w/o evidence of bowel obstruction, but notable vascular congestion in setting of extensive thrombus * Patient had one bowel movement yesterday * Continue to monitor closely VTE Prophylaxis - IV heparin as above Diet - regular Disposition - Med/Tele, home possibly in am. Admission and Anticipated Discharge Date Admission Date: December 12, 2022 Supervising Physician Co-Signing Physician Notes I supervised the medical student, Robson Varma, in the history and physical examination of this patient and agree with the documentation as provided above. Any additional recommendations/comments will be outlined here:Patient presenting for extensive DVT in the setting of Antithrombin 3 deficiency w/ subtherapeutic anticoagulation. Physical examination with appreciable TTP of right calf as well as mild suprapubic TTP (unchanged LE examination, improved suprapubic discomfort). Patient's lungs were CTAB and heart was RRR w/o MRG. Plan to support therapeutic INR with Heparin IV and PO Warfarin (increased dose to 10 mg 12/14), will continue to follow PT/INR, currently still subtherapeutic. Will want to ensure that patient has appropriate access to medications and follow up with PCP prior to discharge. ~ Rosas Velasquez DO Attending Physicain Medical Student Supervision Note: I independently interviewed and examined the patient and verified the dean history and physical, reviewed labs and image studies, discussed the case with the medical student Tarah Varma and the Resident physician Rosas Velasquez and agree with the findings and care plan. Subjective 12/14: This morning Yan is feeling well, resting comfortably in bed. He reports mild abdominal discomfort at rest, but feels that this has improved, and that his bloated sensation has resolved. He had one bowel movement yesterday. He has no shortness of breath and no chest pain. Physical Exam Physical Exam: Constitutional: WD/WN, vitals as above HEENT: + anicteric sclerae; normal pupil size, NCAT Respiratory: normal respiratory effort, lungs clear to auscultation bilaterally, no wheezing/rhonchi/rales Cardiovascular: regular rate and regular rhythm, no rubs murmurs or gallops. Normal capillary refill. Mild right calf tenderness. Pooling of blood and dis coloration on left LL (patient baseline). Distal pulses present and equal bilaterally. Gastrointestinal: Abdomen soft, non-distended, normoactive bowel sounds.. Faint suprapubic TTP, no rebound or guarding. Skin: no rashes, warm and dry. Red/purple discoloration of LLE and toes at baseline. Neurologic: AO x 3, no focal neurologic defects, sensation intact bilaterally Results & Data Results & Data Vital Signs (Past 12 Hours) Vital Signs Temp Pulse Pulse Resp BP Pulse Ox O2 Del Method 12/14/22 08:30 36.5 C 59 L 16 141/86 H 96 Room Air 12/14/22 07:55 71 12/13/22 22:31 68 12/14/22 02:30 36.4 C L 61 16 110/71 98 Room Air 12/13/22 23:56 36.8 C 66 16 116/75 97 Room Air Resident Activity Tracking Resident Involvement: Resident Care Provided Care Provided: Adult Hospital Medicine
[2022-12-14] MEDS: WARFARIN SOD 10 MG TAB PO SCH (16:31)
--- NOTE | 2022-12-15 07:34 | Hospitalist Progress Note ---
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 Patient had not been taking his Warfarin for over a week because he ran out. He also recently drove to [place] for a work trip. CTA Chest without PE, CT A/P and doppler showed significant thrombus in the IVC, on the IVC filter, in the iliac and femoral veins, and in the inferior mesenteric vein. Admitted for reinitiation of Warfarin with Lovenox bridge. Venous thromboembolism (iliac, femoral, inferior mesenteric); Antithrombin III Deficiency Patient with known history of Antithrombin III deficiency. First DVT at age 16 when diagnosis was made. Patient had an IVC filter placed in 2011 in the setting of knee injury/surgery. Patient on Warfarin at home - 7 mg. Patient does not follow with a coumadin clinic. Does not check INR on a regular basis. Patient presented with RLE pain and was found to have an acute DVT in addition to several other thrombi around/in the IVC filter. Patient was without his Warfarin for several days and did travel to [place] via car recently. Likely contributory factors in addition to possible subtherapeutic warfarin dosing. We have restarted Warfarin at an elevated dose. Patient continues to be subt herapeutic with an INR of 1.9. Will continue with Warfarin at 10 mg and uptitrate if indicated. Patient at high risk for embolic event thus will bridge with Lovenox until patient can be seen at coumadin clinic. Would not use a DOAC as evidence is lacking to support its use in Antithrombin III deficiency Imaging: CTA Chest without evidence of PE CTA A&P with evidence of thrombus in IVC filter, extensive thrombus of IVC and majority of iliac and femoral veins (indeterminate age). Bladder wall thickening and enlarged prostate gland/seminal vesicles, possibly a/w abnormal venous drainage in pelvis a/w extensive thrombus seen - Venous Doppler w/ evidence of occlusive thrombus in mid superficial femoral vein and additional occlusion of popliteal, posterior tibial, and peroneal veins Vascular consulted - medication management Start Lovenox 90 mg Q12H Continue Warfarin 10 mg AM INR Constipation vs immotility Patient without signs of bowel obstruction on imaging. Notably there is vascular congestion in the setting of extensive thrombus. Miralax PRN. Continue to monitor VTE Prophylaxis - SQ Lovenox Diet - regular Disposition - Med/Tele, home when INR therapeutic Admission and Anticipated Discharge Date Admission Date: December 12, 2022 Supervising Physician Co-Signing Physician Notes Attending Attestation & Progress Note: Pt seen/examined, chart reviewed, care plan d/w PGY2 Dr Rebeka Mcmullen. I agree w/ the dean components of her documentation. Pt w/o any complaints of dyspnea, WOOD or LE pain. Mild pelvic discomfort/fullness sensation but not a true pain. Eating/drinking well. Admits he had not had his INR checked in "a long time" prior to this hospitalization. VSS, O2 sats wnl gen - NAD neck - no JVD heart - RRR, s1 s2, no murmur lungs - CTA b/l abd - soft NT ND BS+ ext - varicose veins LLE, trace edema LLE, no edema RLE, pulses 2+ b/l INR 1.9, then repeat was 1.8 A/P: 1. recurrent VTE 2. known antithrombin III deficiency 3. acute/chronic VTE with extensive IVC/pelvic/extremity DVTs 4. pre-existing IVC filter 5. noncompliance cont coumadin 10mg daily INR am d/c heparin drip; change to lovenox 1mg/kg BID at d/c would send on lovenox BID along with coumadin until we are sure he is consistently therapeutic AND has had proper follow-up advised he establish with the [facility] hopefully can d/c home tomorrow Bahman Zapata MD Subjective Seen at bedside this AM. No complaints. Overall feels improved. Denies f/c/CP/SOB or pain. Review of Systems Review of Systems: See HPi Physical Exam Physical Exam: Constitutional: WD/WN, vitals as above HEENT: + anicteric sclerae; normal pupil size, NCAT Respiratory: normal respiratory effort, lungs clear to auscultation bilaterally, no wheezing/rhonchi/rales Cardiovascular: regular rate and regular rhythm, no rubs murmurs or gallops. Normal capillary refill. Mild right calf tenderness. Pooling of blood and discoloration on left LL (patient baseline). Distal pulses present and equal bilaterally. Gastrointestinal: Non-distended Skin: no rashes, warm and dry. Red/purple discoloration of LLE and toes at baseline. Neurologic: AO x 3, no focal neurologic defects, sensation intact bilaterally Results & Data Results & Data Vital Signs (Past 12 Hours) Vital Signs Temp Pulse Pulse Resp BP Pulse Ox O2 Del Method 12/15/22 07:21 57 L 12/15/22 04:51 82 12/15/22 03:40 36.6 C 54 L 16 107/69 96 Room Air 12/14/22 23:01 36.7 C 66 18 110/71 97 Room Air Laboratory Results 12/14/22 06:17 12/13/22 07:30 INR 1.9 Resident Activity Tracking Resident Involvement: Resident Care Provided Care Provided: Adult Hospital Medicine
[2022-12-15 07:42] LABS: INR 1.9 (0.9-1.1); Partial Thromboplastin Ratio 2.2; Prothrombin Time 19.8 Seconds (9.0-12.0)
[2022-12-15 07:55] LABS: Partial Thromboplastin Time 60.7 Seconds (21.0-31.0)
[2022-12-15] MEDS ORDERED: ENOXAPARIN 80 MG/0.8 ML SYR SQ SCH (12:00)
[2022-12-15] MEDS: ENOXAPARIN 100 MG/1ML SYR SQ SCH ×2 (13:01→23:36)
[2022-12-15 15:13] LABS: INR 1.8 (0.9-1.1); Prothrombin Time 19.3 Seconds (9.0-12.0)
[2022-12-15] MEDS: WARFARIN SOD 10 MG TAB PO SCH (15:28)
[2022-12-16 07:53] LABS: Hematocrit (blood only) 42.9 % (42.0-52.0); Mean Corpuscular Hemoglobin 30.1 pg (25.0-34.0); Mean Corpuscular Hgb Conc 32.6 g/dL (32.0-36.0); Mean Corpuscular Volume 92.3 fL (80.0-100.0); Mean Platelet Volume 10.1 fL (9.4-12.4); Platelet Count 165 K/uL (130-400); RDW Coefficient of Variation 13.6 % (11.5-14.5); RDW Standard Deviation 46.4 fL (36.4-46.3); Red Blood Count 4.65 M/uL (4.70-6.10); White Blood Count 4.77 K/ul (4.8-10.8)
[2022-12-16 08:06] LABS: BUN Creatinine Ratio 19.4 (10-20); Calcium 9.2 mg/dl (8.6-10.3); Creatinine Clr Calc Pharmacy 89.9 ml/min; Est GFR (African American) 95.7 ml/min; Est GFR (Non-African American) 82.5 ml/min; Potassium 4.2 mmol/L (3.5-5.1)
[2022-12-16 08:15] LABS: INR 2.1 (0.9-1.1); Prothrombin Time 22.4 Seconds (9.0-12.0)
--- NOTE | 2022-12-16 08:55 | Discharge Summary ---
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 He is on lifelong warfarin but reports running out when he went on a business trip and could not getting filled early on Saturday. He usually takes warfarin 7mg PO daily which keeps his INR 2-3. He still hasn't been able to get it filled and has been taking his mother's warfarin dose at 8mg PO daily. since last Saturday including this morning as his right leg has been more painful and he suspected he had a DVT. Yesterday he started having lower abdominal pains, tingling in his fingers and diaphoresis. He went to [facility] and they obtained a CT for pulmonary embolism which was reportedly negative (he has an IVC filter in place) but no abdominal imaging was done per patient recollection and he was sent home with a possible diagnosis of a muscle strain. The pain is worse on any movement and progressively got worse to today therefore decided to come to this ER. In the ER CT A/P showed acute on chronic thrombus of IVC filter and within the majority of the femoral, iliac veins and inferior mesenteric. He does not report any worsening pain after eating. Admission Exam Per Admitting Provider Constitutional: WD/WN, vitals as above Eyes: anicteric sclerae; normal pupil size ENMT: external ear and nose normal, oropharynx normal Respiratory: normal respiratory effort, lungs clear to auscultation Cardiovascular: Rate/Rhythm: regular rate and regular rhythm Heart Sounds: no murmur Extremities: normal capillary refill, + calf tenderness (right) and + pedal edema (1+ b/l equal pitting) Gastrointestinal (Abdomen): Inspection/Auscultation: abdomen normal to ins pection; abdomen not distended Percussion/Palpation: + abdomen tender (suprapubic) and abdomen soft; no guarding and abdomen not rigid Musculoskeletal: no cyanosis or clubbing, extremities motor strength 5/5 Skin: no rashes, warm and dry Neurologic: moves all extremities and awake; not confused Psychiatric: A+Ox3, euthymic affect Principal Diagnosis VTE Discharge Exam Constitutional:WD/WN, vitals as above HEENT:anicteric sclerae; normal pupil size, NCAT Respiratory:normal respiratory effort, lungs clear to auscultation bilaterally, no wheezing/rhonchi/rales Cardiovascular: regular rate and regular rhythm, no rubs murmurs or gallops. Normal capillary refill. No calf tenderness Pooling of blood and discoloration on left LL (patient baseline). Distal pulses present and equal bilaterally. Gastrointestinal: Non-distended Skin: no rashes, warm and dry. Red/purple discoloration of LLE and toes at baseline. Neurologic:AO x 3, no focal neurologic defects, sensation intact bilaterally Discharge Data Allergies Allergy/AdvReac Type Severity Reaction Status Date / Time No Known Allergies Allergy Unverified 12/12/22 14:37 Consultations Consult Vascular Surgery - Lalit Flannery MD Ordered Studies Abdomen/Pelvis CT 12/12/22 11:[address] WITH IV CONTRAST CT DOSE: 1326.08 mGy.cm HISTORY: Lower abd pain TECHNIQUE: Multiaxial CT images of the abdomen and pelvis were performed following the use of intravenous contrast. A dose lowering technique was utilized adhering to the principles of ALARA. COMPARISON STUDY: None. FINDINGS: Small patchy densities within the bilateral lower lobes favor scarring or atelectasis. No pneumoperitoneum. No pneumatosis. No acute fractures identified. Tiny fat-containing inguinal hernia. Multiple superficial vari cosities seen within the lower anterior abdominal wall. No hepatic or splenic masses. The pancreas, adrenal glands, and kidneys are unremarkable. No hydronephrosis. The main portal vein is patent. Small amount nonocclusive thrombus suggested at the portosplenic confluence which extends into the majority of the inferior mesenteric vein. An IVC filter is noted. There is thrombus within the IVC filter and extending distally into the IVC. This likely accounts for the mild fat stranding surrounding the IVC. There is also extensive thrombus involving the majority of the iliac and femoral veins. Hyperdensity within the gallbladder lumen suggestive of vicarious excretion of contrast. There is also contrast within the bladder. This is likely due to a prior CT examination. Moderate bladder wall thickening with adjacent fat stranding. There is also mild fat stranding surrounding the mildly enlarged prostate gland as well as the seminal vesicles. This could be due to the abnormal venous drainage within the pelvis from the extensive venous thrombus or a cystitis/prostatitis. Hypoplastic left external iliac vein suggesting chronic thrombus. No bowel wall thickening or obstruction. Colonic diverticulosis. No evidence for acute diverticulitis. Normal appendix. IMPRESSION: 1. Thrombus identified within the patient's IVC filter. There is also extensive thrombus within the IVC distal to the IVC filter and within the majority of the iliac and femoral veins. The thrombus is age indeterminate but favors an acute on chronic process. There are definite areas of chronic thrombus given the extensive superficial varicosities within the lower abdominal wall and diminutive left external iliac vein. 2. Age-indeterminate thrombus within the inferior mesenteric vein as well as nonocclusive thrombus at the portosplenic confluence. 3. Moderate bladder wall thickening with adjacent fat stranding. There is also mild fat stranding surrounding the mildly enlarged prostate gland as well as the seminal vesicles. This could be due to the abnormal venous drainage within the pelvis from the extensive venous thrombus or a cystitis/prostatitis. 4. No bowel wall thickening or obstruction. Venous Doppler Study 12/12/22 11:11 US venous doppler LE RT HISTORY: 52 years-old Male pain, eval for dvt acute pain and swelling of the right lower extremity COMPARISON: 03/04/2008 TECHNIQUE: Multiple real-time sonographic images of the right lower extremity deep venous structures were obtained assessing grayscale appearance, color and spectral flow. FINDINGS: 2 cm segment of occlusive thrombus is noted within a branch of the mid superficial femoral vein. Additional occlusive thrombus is noted within the popliteal, posterior tibial and peroneal veins. IMPRESSION: Likely acute deep venous thrombosis. 12/16/22 12/16/22 12/16/22 Range/Units 07:03 07:03 07:03 WBC 4.77 L (4.8-10.8) K/ul RBC 4.65 L (4.70-6.10) M/uL Hgb 14.0 (14.0-18.0) g/dl Hct 42.9 (42.0-52.0) % MCV 92.3 (80.0-100.0) fL MCH 30.1 (25.0-34.0) pg MCHC 32.6 (32.0-36.0) g/dL RDW Std Deviation 46.4 H (36.4-46.3) fL RDW Coeff of Xenia 13.6 (11.5-14.5) % Plt Count 165 (130-400) K/uL MPV 10.1 (9.4-12.4) fL PT 22.4 H (9.0-12.0) Seconds INR 2.1 H (0.9-1.1) Sodium 139 (136-145) mmol/L Potassium 4.2 (3.5-5.1) mmol/L Chloride 105 (98-107) mmol/L Carbon Dioxide 30 (21-32) mmol/L Anion Gap 4 (3-11) BUN 20 (6-23) mg/dl Creatinine 1.03 (0.6-1.4) mg/dl Est Cr Clr Drug Dosing 89.9 ml/min Est GFR ( Amer) 95.7 ml/min Est GFR (Non-Af Amer) 82.5 ml/min BUN/Creatinine Ratio 19.4 (10-20) Glucose 97 (70-99(Fasting)) mg/dl Calcium 9.2 (8.6-10.3) mg/dl Hospital Course (1) Deep vein thrombosis: (2) Presence of inferior vena cava filter: (3) Antithrombin 3 deficiency: Olivia Heredia is a 52 year old male with history of antithrombin 3 deficiency and an IVC filter who presented for increasing pain in his RLE over the course of 7 days and lower abdominal discomfort. Patient had not been taking his Warfarin for over a week because he ran out. He also recently drove to [place] for a work trip. CTA Chest without PE, CT A/P and doppler showed significant thrombus in the IVC, on the IVC filter, in the iliac and femoral veins, and in the inferior mesenteric vein. Admitted for reinitiation of Warfarin with Lovenox bridge. Now with therapeutic INR at 2.1. Venous thromboembolism (iliac, femoral, inferior mesenteric); Antithrombin III Deficiency Patient with known history of Antithrombin III deficiency. First DVT at age 16 when diagnosis was made. Patient had an IVC filter placed in 2011 in the setting of knee injury/surgery. Patient on Warfarin at home - 7 mg. Patient does not follow with a coumadin clinic. Does not check INR on a regular basis. Patient presented with RLE pain and was found to have an acute DVT in addition to several other thrombi around/in the IVC filter. Patient was without his Warfarin for several days and did travel to [place] via car recently. Likely contributory factors in addition to possible subtherapeutic warfarin dosing. Vascular was consulted and recommend medical management without surgical intervention. We restarted Warfarin at an elevated dose. INR therapeutic on 10 mg Warfarin QD. Can up-titrate if indicated. Patient at high risk for embolic event thus will bridge with Lovenox 90 mg Q12H until patient can be seen at coumadin clinic. Would not use a DOAC as evidence is lacking to support its use in Antithrombin III deficiency. Patient does report drinking beer on the weekends. May consider reduced dosing on those occasions to avoid supratherapeutic INR. Will recheck INR 12/18/22. Patient will need referral to [facility]. Imaging: CTA Chest without evidence of PE CTA A&P with evidence of thrombus in IVC filter, extensive thrombus of IVC and majority of iliac and femoral veins (indeterminate age). Bladder wall thickening and enlarged prostate gland/seminal vesicles, possibly a/w abnormal venous drainage in pelvis a/w extensive thrombus seen - Venous Doppler w/ evidence of occlusive thrombus in mid superficial femoral vein and additional occlusion of popliteal, posterior tibial, and peroneal veins Constipation vs immotility Patient without signs of bowel obstruction on imaging. Notably there is vascular congestion in the setting of extensive thrombus. Miralax PRN. See attending attestation for further documentation Total Time Total Time Spent Total Time Spent (In Minutes): 40 Discharge Plan Discharge Items Patient Disposition: Home - Self-Care Reason For Visit: DVT Discharge Diagnosis: multiple VTE, subtherapeutic INR Activity: Per Instructions section Non-emergency contact: Primary Care Provider Call non-emergency contact if: your symptoms worsen, your pain is not controlled and you have a fever Follow-up/Referrals: Sidney Sheth [Primary Care Provider] - Diet: Regular Ambulatory Orders: Prothrombin Time INR (Timed) Timeframe: 2 Days Location: Determined by Patient Ordered By: Rebeka Melissa Attending Provider Instructions: You were admitted to the hospital for right leg pain. You were found to have a blood clot in your right leg. There were also several clots around and in your IVC filter. This is likely related to your antithrombin 3 deficiency. You were treated with a blood thinner called heparin and then transitioned to warfarin. We increased your dose to 10 mg every day and were able to get your INR to a therapeutic level. We also added on a bridge of Lovenox as you are at high risk of pulmonary embolism. You will inject 90 mg under your skin every 12 hours for the next few days. You were taught to do this prior to discharge. It is extremely important that you follow up with your primary care physician and establish with a coumadin (warfarin) clinic. We will fill out the paperwork for the [facility]. Your INR will need to be closely monitored to make sure that it is in the therapeutic range. I have ordered an INR for 12/19 have them fax the results to [facility], if unable to do so please have labs drawn here at the hospital. Results of this will be sent to the oncoming provider and your PCP. If it is above the therapeutic range you have an increased risk of bleeding. If it is below the therapeutic range you have an increased risk of clotting. Your warfarin dose may need adjusted over time to stay within the 2-3 (therapeutic) range. A discharge summary will be sent to your primary care physician to ensure continuity of care. Please bring this discharge summary with you to your next office appointment so that your provider can review it at that time. Follow-up appointments: Make a follow-up appointment with your PCP within the next week. It is very important that you follow up with them shortly after discharge from the hospital. Keep all your follow-up appointments as already scheduled. If you cannot make an appointment, notify your provider. Medications: Your medication list has been reviewed and reconciled upon discharge to ensure accuracy and continuity of care. An updated list of all your medications is included with your hospital discharge paperwork. Please review this list closely, and make note of any changes. We increased your dose of Warfarin to 10 mg. Take this dose every day. You will need close follow up with your primary care doctor and a coumadin clinic. We sent a new medication called Lovenox to your pharmacy. You will inject 90 mg every 12 hours. You will need to waste 10 mg prior to giving the dose. You were trained on how to do these injections during your hospital stay. You were given a 7 day supply, but you will likely not need to use it for the full 7 days. This is a bridge as your warfarin levels equilibrate If you have any issues filling these prescriptions, please call [phone] and ask to leave a message for Dr. Mcmullen. Take your medications as instructed; do not skip a dose of your medicines. Make sure all of your doctors know every medicine you are taking (including ygtu-[id number]-[id number] medicines, vitamins, and supplements). Call your primary care provider before taking any new medicines (including over- the-counter medicines, vitamins, and supplements), because some of these may interact with your current medications, or may make your symptoms worse. Tell your primary care provider if you cannot afford your medications. CONTACT YOUR PRIMARY CARE PROVIDER if you experience any of the following: blood in urine, stool, or vomit worsening pain or new shortness of breath Difficulty following your treatment plan, or difficulty taking medications CALL 911 OR GO TO THE EMERGENCY DEPARTMENT if you experience any of the following: Sudden, severe abdominal pain or nausea/vomiting Severe chest pain, or chest pain that radiates (moves) to your jaw or arm Sudden, severe shortness of breath or difficulty breathing Thank you for allowing us to participate in your care Pending Studies at Discharge: No Stand-Alone Forms: My [employer], Smoking Cessation Medications and DC Order Prescriptions: New warfarin 10 mg Tablet 10 mg PO DAILY@1600 30 Days Qty: 30 0RF enoxaparin 100 mg/mL Syringe 90 mg subcut Q12H 7 Days Qty: 12.6 0RF Continued sildenafil 100 mg tablet 100 mg PO DAILY PRN (Reason: 1 hour prior to sexual activity) Discontinued warfarin [Jantoven] 2 mg Tablet See Rx Instructions .ROUTE .COMPLEX Rx Instructions: Take 2mg with 5mg tablet to equal 7mg by mouth once daily warfarin [Jantoven] 5 mg tablet See Rx Instructions .ROUTE .COMPLEX Rx Instructions: Take 5mg with 2mg tablet to equal 7mg by mouth once daily Discharge Orders: Discharge Order (Routine); Ordered 12/16/22 Ordered By: Rebeka Mcmullen Admission Data Admit Date/Time: 12/12/22 14:29 Attending Provider: Bahman Zapata Admit Provider: Bahman Emmanuel Primary Care Provider: Sidney Sheth Other Providers: Kyler Flannery ; Bahman Emmanuel Other Interventions: Discharge Summary Assessment (RN) Last Done: 12/16/22 12:41 Supervising Physician Co-Signing Physician Notes Attending Attestation & Discharge Note: Pt seen/examined, chart reviewed, discharge care plan d/w PGY2 Dr Rebeka Mcmullen. I agree w/ the dean components of her documentation. 52yo male with known antithrombin III deficiency, chronic IVC filter, and prior VTE events - on chronic coumadin, but noncompliant with such. Presented to [facility] with right leg pain and abdominal/pelvic discomfort. Imaging showed extensive DVT in, around, and below his IVC filter; DVT in b/l iliacs, b/l femorals; and DVT in the RLE. INR at time of admission was 1.4. Thus, this VTE event would not be considered a coumadin failure. He received heparin infusion while here and coumadin was resumed. Discharge INR was 2.1. He was given lovenox teaching, and will d/c home with lovenox 90mg q12h + coumadin 10mg daily. He was strongly advised to follow with the [facility] to ensure consistently therapeutic INR between 2-3. A repeat INR will be obtained on 12/18/22 as outpatient with subsequent INR checks to be determined based on this level. Of note - [facility] vascular surgery was consulted and they advised non-operative management of his extensive VTE rather than catheter-directed thrombolysis, etc. Discharge exam: gen - NAD neck - no JVD heart - RRR, s1 s2, no murmur lungs - CTA b/l abd - soft NT ND BS+ ext - varicose veins LLE, trace edema b/l, pulses 2+ b/l Bahman Zapata MD Resident Activity Tracking Resident Involvement: Resident Care Provided Care Provided: Adult Hospital Medicine
--- NOTE | 2022-12-16 09:09 | Billing Data ---
Date of Service December 15, 2022 Coding Level of Care Code 73309 SUB INP/OBS CARE
[2022-12-16] MEDS: ENOXAPARIN 100 MG/1ML SYR SQ SCH (12:05)
--- NOTE | 2022-12-18 05:55 | Billing Data ---
Date of Service December 16, 2022 Coding Level of Care Code 56112 INP/OBS DISCH >30 MIN Time Spent (min) 40
== END 2022-12-16 13:18 | disposition home or self-care (01) | DRG 300 ==
LOC: ED 10:31 → SUATTDRO 14:29 → EDINP 14:29 → 2W 17:18